=== PATIENT | female | born 1990 | race Caucasian/White ===

== ENCOUNTER 2016-07-15 21:30 | Emergency (ER) | payer BC, OTHER ==
[2016-07-15 21:36] VITALS: BMI 29.8
[2016-07-15 21:39] VITALS: BP 133/65; PULSE 72; RESP 16; TEMP 98.3; O2SAT 100
--- NOTE | 2016-07-15 21:56 | ED PDOC ---
HPI: CCC, URI, Sore Throat Time Seen by Provider: 07/15/16 21:45 Chief Complaint (Nursing): ENT Problem History Per: Patient History/Exam Limitations: no limitations Onset/Duration Of Symptoms: Days (X 1) Current Symptoms Are (Timing): Still Present Sick Contacts (Context): None Associated Symptoms: denies: Fever, Chills, Cough, Sputum Additional Complaint(s): Tiana Michael is a 25 year old female, with no previous medical history, who presents to the ED for the evaluation of a "swollen lymph" on the left side under her jaw ongoing for 1 day. Patient reports pain to the inside of her mouth. Patient denies any fever, chills, throat pain or difficulty swallowing. PMD: none provided Past Medical History Reviewed: Historical Data, Nursing Documentation, Vital Signs Vital Signs: Last Vital Signs Temp 98.3 F 07/15/16 21:36 Pulse 72 07/15/16 21:36 Resp 16 07/15/16 21:36 BP 133/65 07/15/16 21:36 Pulse Ox 100 07/15/16 22:01 - Medical History PMH: Asthma, Hyperlipidemia Denies: Chronic Kidney Disease - Surgical History Surgical History: No Surg Hx - Family History Family History: States: Unknown Family Hx - Home Medications Home Medications: Ambulatory Orders Medication Instructions Recorded Acetaminophen [Tylenol Extra 500 mg PO Q6H PRN #12 tab 05/19/14 Strength] Albuterol HFA [Ventolin HFA 90 2 puff INH PRN 05/19/14 mcg/actuation (8 g)] Mometasone Furoate [Nasonex] 1 spray INH PRN PRN 05/19/14 Ibuprofen [Motrin] 600 mg PO Q6H PRN #20 tab 12/31/14 Ondansetron ODT [Zofran ODT] 4 mg PO Q8H PRN #20 odt 12/31/14 Prednisone [Prednisone] 20 mg PO DAILY 12/31/14 oxyCODONE/Acetaminophen [Percocet 1 tab PO Q6H PRN #15 tab 12/31/14 5/325 mg Tab] Ibuprofen [Motrin] 600 mg PO Q8 PRN #21 tab 07/15/16 Mag&Al/Simet/Diphen/Lido [First 5 ml MM QID PRN #1 kit 07/15/16 Magic Mouthwash] - Allergies Allergies/Adverse Reactions: Allergies Allergy/AdvReac Type Severity Reaction Status Date / Time minocycline [From Solodyn] Allergy HEADACHE Verified 07/15/16 21:35 naproxen Allergy RASH Verified 07/15/16 21:35 Sulfa (Sulfonamide Allergy ANAPHYLAXIS Verified 07/15/16 21:35 Antibiotics) Review of Systems ROS Statement: Except As Marked, All Systems Reviewed And Found Negative Constitutional: Negative for: Fever, Chills ENT: Negative for: Throat Pain Physical Exam - Reviewed Nursing Documentation Reviewed: Yes Vital Signs Reviewed: Yes - Physical Exam Appears: Positive for: Well, Non-toxic, No Acute Distress Head Exam: Positive for: ATRAUMATIC, NORMAL INSPECTION, NORMOCEPHALIC ENT: Positive for: Other (canker sore to the medial aspect in the mouth. tenderness to the left lateral neck. Small pimple noted ). Negative for: Tonsillar Exudate, Tonsillar Swelling Neck: Positive for: Normal, Painless ROM, Supple Cardiovascular/Chest: Positive for: Regular Rate, Rhythm Respiratory: Positive for: CNT, Normal Breath Sounds Neurologic/Psych: Positive for: Alert, Oriented - ECG O2 Sat by Pulse Oximetry: 100 (RA) Pulse Ox Interpretation: Normal - Progress ED Course And Treament: rapid strep neg d/w patient management of her unilateral lymph node. Lymph node appears small and perhaps related to canker sore. As she has had many allergic reactions to antibiotics, will advise cold compresses/motrin as well as magic mouthwash for canker sore. Patient to f/u with her pmd for further evaluation and advised to return to ED for worsening symptoms. Medical Decision Making Medical Decision Making: Initial Plan: * rapid strep Scribe Attestation: Documented by Maria Dolores Aranda, acting as a scribe for Kenisha Rodriguez PA-C. Provider Scribe Attestation: All medical record entries made by the Manjitibjada were at my direction and personally dictated by me. I have reviewed the chart and agree that the record accurately reflects my personal performance of the history, physical exam, medical decision making, and the department course for this patient. I have also personally directed, reviewed, and agree with the discharge instructions and disposition. Disposition - Clinical Impression Clinical Impression: Canker sore, Lymphadenopathy - Patient ED Disposition Is Patient to be Admitted: No - Disposition Disposition: Routine/Home Disposition Time: 23:02 Condition: FAIR Prescriptions: Ibuprofen [Motrin] 600 mg PO Q8 PRN #21 tab PRN Reason: Pain, Moderate (4-7) Mag&Al/Simet/Diphen/Lido [First Magic Mouthwash] 5 ml MM QID PRN #1 kit PRN Reason: Pain, Moderate (4-7) Instructions: Lymphadenopathy (GEN), Canker Sores (ED)
== END 2016-07-15 23:06 | disposition home or self-care (01) ==
LOC: H.ER 21:30
DX: K12.0 Recurrent oral aphthae (principal); R59.9 Enlarged lymph nodes, unspecified; E78.5 Hyperlipidemia, unspecified; J45.909 Unspecified asthma, uncomplicated

== ENCOUNTER 2018-01-17 11:50 | Emergency (ER) | payer BC, OTHER ==
[2018-01-17 11:57] VITALS: BMI 28.7
[2018-01-17] MEDS ORDERED: Sodium Chloride 0.9% 1,000 ML IV STA (12:43)
[2018-01-17 12:59] LABS: VENOUS BLOOD GAS BASE EXCESS 1.7 mmol/L (0.0-2.0); VENOUS BLOOD GAS PCO2 42 mmHg (40-60); VENOUS BLOOD GAS PO2 28 mm/Hg (30-55); VENOUS BLOOD PH 7.41 (7.32-7.43)
[2018-01-17] MEDS ORDERED: cefTRIAXone (Rocephin) 1 gm Inj ONE ×2 (12:59→14:22)
[2018-01-17 13:00] LABS: BASO % 0.4 % (0.0-2.0); EOS % 0.3 % (0.0-4.0); LYMPH # 1.6 K/uL (1.0-4.3); LYMPH % 15.3 % (20.0-40.0); MEAN CELL VOLUME 87.5 fl (81.0-99.0); MEAN CORPUSCULAR HEMOGLOBIN 29.5 pg (27.0-31.0); MEAN CORPUSCULAR HGB CONC 33.7 g/dL (33.0-37.0); MEAN PLATELET VOLUME 7.7 fl (7.2-11.7); MONO # 0.5 K/uL (0.0-0.8); MONO % 5.2 % (0.0-10.0); NEUT # 8.2 K/uL (1.8-7.0); NEUT % 78.8 % (50.0-75.0); NRBC % 0.1 % (0.0-0.0); RBC 5.08 Mil/uL (3.80-5.20); RED CELL DISTRIBUTION WIDTH 12.8 % (11.5-14.5); WHITE BLOOD COUNT 10.4 K/uL (4.8-10.8)
[2018-01-17 13:13] LABS: ALB/GLOB RATIO 1.2 (1.0-2.1); ALBUMIN 4.9 g/dL (3.5-5.0); ALT/SGPT 25 U/L (9-52); AST/SGOT 29 U/L (14-36); BLOOD UREA NITROGEN 8 mg/dl (7-17); CALCIUM 9.2 mg/dL (8.4-10.2); GFR NON-AFRICAN AMERICAN > 60
[2018-01-17] MEDS ORDERED: Potassium Chloride 20 mEq ER Tab PO STA (13:16)
--- NOTE | 2018-01-17 13:38 | ED PDOC ---
HPI: General Adult Time Seen by Provider: 01/17/18 12:34 Chief Complaint (Nursing): Flu-like Symptoms Chief Complaint (Provider): Fever History Per: Patient History/Exam Limitations: no limitations Onset/Duration Of Symptoms: Other (x1 week) Current Symptoms Are (Timing): Still Present Additional Complaint(s): 27 year old female presents to the ED complaining of a fever for a week associated with a posterior headache and left sided neck pain. Patient is also complaining of photophobia. She states headache is worse with cough. She reports feeling nauseous and vomiting x1 episode. Denies diarrhea, genitourinary symptoms. PMD: none Past Medical History Reviewed: Historical Data, Nursing Documentation, Vital Signs Vital Signs: Last Vital Signs Temp 102.6 F H 01/17/18 12:20 Pulse 125 H 01/17/18 12:20 Resp 19 01/17/18 12:20 BP 122/88 01/17/18 11:56 Pulse Ox 99 01/17/18 12:20 - Medical History PMH: Asthma, Hyperlipidemia Denies: Chronic Kidney Disease - Surgical History Surgical History: No Surg Hx - Family History Family History: States: Unknown Family Hx - Home Medications Home Medications: Ambulatory Orders Medication Instructions Recorded Acetaminophen [Tylenol Extra 500 mg PO Q6H PRN #12 tab 05/19/14 Strength] Albuterol HFA [Ventolin HFA 90 2 puff INH PRN 05/19/14 mcg/actuation (8 g)] Mometasone Furoate [Nasonex] 1 spray INH PRN PRN 05/19/14 Ibuprofen [Motrin] 600 mg PO Q6H PRN #20 tab 12/31/14 Ondansetron ODT [Zofran ODT] 4 mg PO Q8H PRN #20 odt 12/31/14 Prednisone 20 mg PO DAILY 12/31/14 oxyCODONE/Acetaminophen [Percocet 1 tab PO Q6H PRN #15 tab 12/31/14 5/325 mg Tab] Ibuprofen [Motrin] 600 mg PO Q8 PRN #21 tab 07/15/16 Mag&Al/Simet/Diphen/Lido [First 5 ml MM QID PRN #1 kit 07/15/16 Magic Mouthwash] Azithromycin [Zithromax] 500 mg PO DAILY #3 tab 01/17/18 - Allergies Allergies/Adverse Reactions: Allergies Allergy/AdvReac Type Severity Reaction Status Date / Time minocycline [From Solodyn] Allergy HEADACHE Verified 07/15/16 21:35 naproxen Allergy RASH Verified 07/15/16 21:35 Sulfa (Sulfonamide Allergy ANAPHYLAXIS Verified 07/15/16 21:35 Antibiotics) Review of Systems ROS Statement: Except As Marked, All Systems Reviewed And Found Negative Constitutional: Positive for: Fever Respiratory: Positive for: Cough Gastrointestinal: Positive for: Nausea, Vomiting. Negative for: Diarrhea Genitourinary Female: Negative for: Dysuria, Hematuria, Vaginal Discharge, Vaginal Bleeding Musculoskeletal: Positive for: Neck Pain (left sided) Neurological: Positive for: Headache, Other (Photophobia) Physical Exam - Reviewed Nursing Documentation Reviewed: Yes Vital Signs Reviewed: Yes - Physical Exam Appears: Positive for: Non-toxic, No Acute Distress Head Exam: Positive for: ATRAUMATIC, NORMOCEPHALIC Skin: Positive for: Normal Color, Warm, Dry Eye Exam: Positive for: Normal appearance Neck: Positive for: Normal, Painless ROM Cardiovascular/Chest: Positive for: Regular Rate, Rhythm, Tachycardia Respiratory: Positive for: Normal Breath Sounds. Negative for: Wheezing, Respiratory Distress Gastrointestinal/Abdominal: Positive for: Normal Exam, Soft. Negative for: Tenderness Back: Positive for: Other (Left paraspinal tenderness) Extremity: Positive for: Normal ROM Neurologic/Psych: Positive for: Alert, Oriented. Negative for: Motor/Sensory Deficits - Laboratory Results Result Diagrams: 01/17/18 12:40 01/17/18 12:40 - ECG O2 Sat by Pulse Oximetry: 99 (RA) Pulse Ox Interpretation: Normal - Progress Re-evaluation Time: 16:47 Condition: Improved Medical Decision Making Medical Decision Making: Initial Impression: Fever, headache, cough Initial Plan: --VBG shock panel --Head CT --CMP --ED urine --ED urine dipstick --CBC --Chest X-ray --Potassium chloride 20 meq PO --Ibuprofen 600mg PO --Sodium chloride 1000mL IV --Rocephin 1gm IV --Tylenol 650mg PO --Vancomycin 1gm IV --Zovirax 740mg IV --Blood culture --Urine culture --Influenza A B stat --Urinalysis Accession No. : [id number] Patient Name / ID : CHON KING / [id number] Exam Date : 01/17/2018 15:10:55 ( Approved ) Study Comment : Sex / Age : F / 27Y Creator : Dictator : Ruiz Schumacher MD Casting Director : Director Life : Ruiz Schumacher MD Approver2 : Report Date : My Comment : Date of service: 01/17/2018 HISTORY: Cough COMPARISON: No prior. TECHNIQUE: Chest PA and lateral FINDINGS: LUNGS: Limited patchy density seen only in the frontal view of the right base medially. This may be artifactual however this is suspicious for limited patchy infiltrate. Left lung is clear. PLEURA: No significant pleural effusion identified. No pneumothorax apparent. CARDIOVASCULAR: No aortic atherosclerotic calcification present. Normal cardiac size. No pulmonary vascular congestion. OSSEOUS STRUCTURES: No significant abnormalities. VISUALIZED UPPER ABDOMEN: Normal. OTHER FINDINGS: None. IMPRESSION: Findings suspicious for right basilar infiltrate with remainder the examination unremarkable. Clinically correlate further. Scribe Attestation: Documented by Geraldo Rodarte acting as a scribe for Maria Dolores Muro MD. Provider Scribe Attestation: All medical record entries made by the Scribe were at my direction and personally dictated by me. I have reviewed the chart and agree that the record accurately reflects my personal performance of the history, physical exam, med [facility] decision making, and the department course for this patient. I have also personally directed, reviewed, and agree with the discharge instructions and disposition. Disposition - Clinical Impression Clinical Impression: Pneumonia - Disposition Referrals: Elvia Mercedes MD [Family Provider] - Disposition: Routine/Home Disposition Time: 16:34 Condition: IMPROVED Additional Instructions: TAKE MOTRIN AND/OR TYLENOL NEEDED FOR FEVER. Prescriptions: Azithromycin [Zithromax] 500 mg PO DAILY #3 tab Instructions: Pneumonia in Adults Forms: [employer] ([place]), [facility] ED School/Work Excuse Lumbar Puncture - Time Out Time Out: Site verified, Patient ID confirmed, Sterile procedures obs. - Consent obtained Consent obtained: Written - Performed by Performed by: Attending Physician - Indications Indication(s): Suspected menigitis - Contraindications Contraindications: None - Patient Position Patient position: Sitting - Local Anesthetic Local Anesthetic: 1% Lidocaine Location: L4/L5 - Fluid Appearance Fluid Appearance: Clear - Post-procedure Post-procedure: No leak/bld from LP site, Dressing applied, Patient laid flat, Neurovascular status nml - CSF Studies CSF Studies: Cell count/diff, Glucose, Protein, Gram stain, culture/sensitivity, Antigens - Complications Complications: None
[2018-01-17] MEDS ORDERED: Lidocaine 1% Inj (20ml) ONE (13:43)
--- NOTE | 2018-01-17 13:50 | CT ---
Date of service: 01/17/2018 PROCEDURE: CT HEAD WITHOUT CONTRAST. HISTORY: [place], fever COMPARISON: Noncontrast head CT 12/31/2014. TECHNIQUE: Axial computed tomography images were obtained through the head/brain without intravenous contrast. Radiation dose: Total exam DLP = 825.33 mGy-cm. This CT exam was performed using one or more of the following dose reduction techniques: Automated exposure control, adjustment of the mA and/or kV according to patient size, and/or use of iterative reconstruction technique. FINDINGS: HEMORRHAGE: No intracranial hemorrhage. BRAIN: Normal braswell-white matter differentiation and density are appreciated throughout the cerebrum and cerebellum with the brainstem appearing unremarkable as well. There is no mass effect. There is no suspicious extra-axial fluid collection and the midline brain anatomy appears diffusely unremarkable. VENTRICLES: Unremarkable. No hydrocephalus. CALVARIUM: Unremarkable. PARANASAL SINUSES: Unremarkable as visualized. No significant inflammatory changes. MASTOID AIR CELLS: Unremarkable as visualized. No inflammatory changes. OTHER FINDINGS: None. IMPRESSION: Stable unremarkable noncontrast head CT.
[2018-01-17 13:53] LABS: SQUAMOUS EPITHIAL 2 /hpf (0-5); URINE BILIRUBIN NEGATIVE (NEGATIVE); URINE BLOOD SMALL (NEGATIVE); URINE CLARITY SLIGHTY-CLOUDY (Clear); URINE COLOR STRAW (YELLOW); URINE GLUCOSE (UA) NEG (Normal); URINE LEUKOCYTE ESTERASE NEG Leu/uL (Negative); URINE PROTEIN NEGATIVE (NEGATIVE); URINE UROBILINOGEN 0.2-1.0 mg/dL (0.2-1.0)
[2018-01-17] MEDS ORDERED: Vancomycin 1 g Inj ONE (14:18)
[2018-01-17] MEDS ORDERED: Potassium Chloride 20 mEq ER Tab PO ONE (14:29)
[2018-01-17] MEDS ORDERED: SODIUM CHLORIDE 0.9% IV ONE (14:45)
[2018-01-17] MEDS ORDERED: ACYCLOVIR IV ONE (14:45)
[2018-01-17 15:38] LABS: CSF APPEARANCE CLEAR/COLORLESS (CLEAR); CSF VOLUME 2 mL (0-1); FLUID TYPE SPINAL FLUID
--- NOTE | 2018-01-17 16:15 | RAD ---
Date of service: 01/17/2018 HISTORY: Cough COMPARISON: No prior. TECHNIQUE: Chest PA and lateral FINDINGS: LUNGS: Limited patchy density seen only in the frontal view of the right base medially. This may be artifactual however this is suspicious for limited patchy infiltrate. Left lung is clear. PLEURA: No significant pleural effusion identified. No pneumothorax apparent. CARDIOVASCULAR: No aortic atherosclerotic calcification present. Normal cardiac size. No pulmonary vascular congestion. OSSEOUS STRUCTURES: No significant abnormalities. VISUALIZED UPPER ABDOMEN: Normal. OTHER FINDINGS: None. IMPRESSION: Findings suspicious for right basilar infiltrate with remainder the examination unremarkable. Clinically correlate further.
[2018-01-17 16:42] VITALS: BP 114/68; PULSE 92; RESP 16; TEMP 98.4
[2018-01-17 16:47] VITALS: O2SAT 99
[2018-01-17] MEDS ORDERED: SODIUM CHLORIDE 0.9% IV SCH (17:00)
[2018-01-17] MEDS ORDERED: ACYCLOVIR IV SCH (17:00)
[2018-01-19 17:57] LABS: SPECIMEN SOURCE CSF
== END 2018-01-17 17:15 | disposition home or self-care (01) ==
LOC: H.ER 11:50
DX: J18.9 Pneumonia, unspecified organism (principal); E78.5 Hyperlipidemia, unspecified
CPT/HCPCS: 70450; 71046; 80053; 81003; 81025; 82803; 82945; 84157; 85025; 86592; 87040; 87070; 87086; 87529; 87804; 89050; 96374; 96375; 96376; 99284; J0696; J7030

== ENCOUNTER 2018-01-18 16:37 | Emergency (ER) | payer OTHER ==
[2018-01-18 16:37] VITALS: BMI 28.7
[2018-01-18] MEDS ORDERED: Sodium Chloride 0.9% 1,000 ML IV STA (17:40)
--- NOTE | 2018-01-18 18:13 | ED PDOC ---
HPI: Fever Time Seen by Provider: 01/18/18 17:26 What Antipyretic Given Prior To Arrival: Acetaminophen, Ibuprofen Symptoms Associated With Fever: Diarrhea, Cough Additional Comments: 27 year old female with a history of asthma presents to the ED with fever and cough for about a week with mild throat irritation when she coughs. She was seen in this ER yesterday and diagnosed with pneumonia after labs and a lumbar puncture performed. Patient was given IV Vancomycin and Rocephin and discharged with Azithromycin that she started today. She returned today because her temperature is persistently elevated. However she has only taken 500 mg of Tylenol and 200 mg of Ibuprofen for her fever. She reports decreased appetite, headaches, body aches and an episode of diarrhea today, but denies sore throat, runny nose, nausea, vomiting, rash or shortness of breath. PMD: Dr. Mercedes Past Medical History Reviewed: Historical Data, Nursing Documentation, Vital Signs Vital Signs: Last Vital Signs Temp 101.4 F H 01/18/18 16:43 Pulse 125 H 01/18/18 16:43 Resp 20 01/18/18 16:43 BP 133/72 01/18/18 16:43 Pulse Ox 97 01/18/18 16:43 - Medical History PMH: Asthma, Hyperlipidemia Denies: Chronic Kidney Disease - Surgical History Surgical History: No Surg Hx - Family History Family History: States: Diabetes, Hypertension - Social History Current smoker - smoking cessation education provided: Yes - Home Medications Home Medications: Ambulatory Orders Medication Instructions Recorded Acetaminophen [Tylenol Extra 500 mg PO Q6H PRN #12 tab 05/19/14 Strength] Albuterol HFA [Ventolin HFA 90 2 puff INH PRN 05/19/14 mcg/actuation (8 g)] Mometasone Furoate [Nasonex] 1 spray INH PRN PRN 05/19/14 Ibuprofen [Motrin] 600 mg PO Q6H PRN #20 tab 12/31/14 Ondansetron ODT [Zofran ODT] 4 mg PO Q8H PRN #20 odt 12/31/14 Prednisone 20 mg PO DAILY 12/31/14 oxyCODONE/Acetaminophen [Percocet 1 tab PO Q6H PRN #15 tab 12/31/14 5/325 mg Tab] Ibuprofen [Motrin] 600 mg PO Q8 PRN #21 tab 07/15/16 RX: Mag&Al/Simet/Diphen/Lido 5 ml MM QID PRN #1 kit 07/15/16 [First Magic Mouthwash] Azithromycin [Zithromax] 500 mg PO DAILY #3 tab 01/17/18 RX: Acetaminophen [Tylenol Extra 1,000 mg PO Q6 PRN #100 tablet 01/18/18 Strength] RX: Ibuprofen [Motrin Tab] 600 mg PO Q8 PRN #60 tab 01/18/18 - Allergies Allergies/Adverse Reactions: Allergies Allergy/AdvReac Type Severity Reaction Status Date / Time minocycline [From Solodyn] Allergy HEADACHE Verified 01/18/18 16:42 naproxen Allergy RASH Verified 01/18/18 16:42 Sulfa (Sulfonamide Allergy ANAPHYLAXIS Verified 01/18/18 16:42 Antibiotics) Review of Systems ROS Statement: Except As Marked, All Systems Reviewed And Found Negative Constitutional: Positive for: Fever ENT: Positive for: Throat Pain (mild when coughing). Negative for: Nose Discharge Respiratory: Positive for: Cough. Negative for: Shortness of Breath Gastrointestinal: Positive for: Diarrhea, Other (decreased appetite). Negative for: Nausea, Vomiting Musculoskeletal: Positive for: Other (body aches) Skin: Negative for: Rash Neurological: Positive for: Headache Physical Exam - Reviewed Nursing Documentation Reviewed: Yes Vital Signs Reviewed: Yes - Physical Exam Appears: Positive for: No Acute Distress (tired) Head Exam: Positive for: ATRAUMATIC, NORMOCEPHALIC Skin: Positive for: Warm, Dry Eye Exam: Positive for: EOMI, PERRL ENT: Positive for: Pharynx Is (clear), Other (tacky mucous membranes). Negative for: Tonsillar Exudate, Tonsillar Swelling Neck: Positive for: Painless ROM, Supple Cardiovascular/Chest: Positive for: Regular Rate, Rhythm. Negative for: Murmur Respiratory: Positive for: Normal Breath Sounds. Negative for: Respiratory Distress Gastrointestinal/Abdominal: Positive for: Soft. Negative for: Tenderness Back: Positive for: Normal Inspection. Negative for: Decreased ROM Extremity: Positive for: Normal ROM. Negative for: Deformity Lymphatic: Negative for: Adenopathy Neurologic/Psych: Positive for: Alert. Negative for: Motor/Sensory Deficits - Laboratory Results Result Diagrams: 01/18/18 18:14 01/18/18 18:14 - ECG O2 Sat by Pulse Oximetry: 97 (RA) Pulse Ox Interpretation: Normal Medical Decision Making Medical Decision Making: Time: 1738 Initial Impression: Pneumonia, febrile illness, dehydration Initial Plan: --CMP --Lact acid --Magnesium --Phosphorus --Urine dip --Urine preg --CBC with differentials --Tylenol 975 mg PO --Ibuprofen 600 mg PO --Dextrose --Pepcid 30 mg IVP --NS --Labs demonstrate mild hypokalemia, otherwise no clinically significant abnormalities. Time: 1999 --On reevaluation, patient reports feeling slightly better, repeat vitals pending. 2099 Repeat vitals improved. IVF continued. --------- Scribe Attestation: Documented by Bonita Rodarte, acting as a scribe for Kasie Martinez MD Provider Scribe Attestation: All medical record entries made by the Scribe were at my direction and personally dictated by me. I have reviewed the chart and agree that the record accurately reflects my personal performance of the history, physical exam, medical decision making, and the department course for this patient. I have also personally directed, reviewed, and agree with the discharge instructions and disposition Disposition - Clinical Impression Clinical Impression: Pneumonia, Fever - Disposition Referrals: Elvia Mercedes MD [Family Provider] - 01/19/18 Disposition: Routine/Home Disposition Time: 23:00 Condition: IMPROVED Additional Instructions: FOLLOW UP WITH YOUR DOCTOR IN 1-2 DAYS DRINK PLENTY OF HYDRATING FLUIDS AND REST RETURN TO ER FOR WORSENING SYMPTOMS Prescriptions: RX: Acetaminophen [Tylenol Extra Strength] 1,000 mg PO Q6 PRN #100 tablet PRN Reason: FEVER OR PAIN RX: Ibuprofen [Motrin Tab] 600 mg PO Q8 PRN #60 tab PRN Reason: FEVER OR PAIN Instructions: Pneumonia, Adult (DC), Fever, Adult (DC) Forms: [facility] ED School/Work Excuse
[2018-01-18 18:25] LABS: BASO % 0.5 % (0.0-2.0); EOS % 0.5 % (0.0-4.0); HEMOGLOBIN 14.1 g/dL (12.0-16.0); LYMPH # 1.8 K/uL (1.0-4.3); LYMPH % 23.7 % (20.0-40.0); MEAN CELL VOLUME 87.3 fl (81.0-99.0); MEAN CORPUSCULAR HEMOGLOBIN 29.4 pg (27.0-31.0); MEAN CORPUSCULAR HGB CONC 33.7 g/dL (33.0-37.0); MEAN PLATELET VOLUME 7.7 fl (7.2-11.7); MONO # 0.5 K/uL (0.0-0.8); MONO % 6.4 % (0.0-10.0); NEUT # 5.3 K/uL (1.8-7.0); NEUT % 68.9 % (50.0-75.0); NRBC % 0.1 % (0.0-0.0); RBC 4.81 Mil/uL (3.80-5.20); RED CELL DISTRIBUTION WIDTH 13.1 % (11.5-14.5); WHITE BLOOD COUNT 7.7 K/uL (4.8-10.8)
[2018-01-18 19:00] LABS: ALB/GLOB RATIO 1.3 (1.0-2.1); ALBUMIN 4.8 g/dL (3.5-5.0); ALT/SGPT 22 U/L (9-52); AST/SGOT 50 U/L (14-36); BLOOD UREA NITROGEN 5 mg/dl (7-17); CALCIUM 9.3 mg/dL (8.4-10.2); GFR NON-AFRICAN AMERICAN > 60
[2018-01-18] MEDS: Potassium Chloride 20 mEq ER Tab PO STA ×2 (22:54→23:03)
[2018-01-18] MEDS ORDERED: Potassium Chloride 20 mEq ER Tab PO ONE ×2 (22:54→22:58)
[2018-01-18] MEDS ORDERED: K-Lyte 25meq EF Tab PO ONE ×2 (23:07)
[2018-01-19 00:47] VITALS: BP 122/68; PULSE 87; RESP 16; TEMP 98.6; O2SAT 97
== END 2018-01-19 00:10 | disposition home or self-care (01) ==
LOC: H.ER 16:37
DX: J18.9 Pneumonia, unspecified organism (principal); R50.9 Fever, unspecified; E87.6 Hypokalemia; J02.9 Acute pharyngitis, unspecified; F17.200 Nicotine dependence, unspecified, uncomplicated
CPT/HCPCS: 80053; 81025; 83605; 83735; 84100; 85025; 96361; 96374; 99284; J7030; J7042